=== PATIENT | male | born 1975 | race Hispanic/Latino ===

== ENCOUNTER 2021-07-31 09:06 | Emergency (ER) | payer SELFPAY ==
[2021-07-31] MEDS ORDERED: Boostrix 0.5 ML (Tdap) VIAL ONE (09:32)
[2021-07-31] MEDS ORDERED: Morphine 4 MG/ML VIAL ONE ×2 (09:32→10:41)
== END 2021-07-31 11:33 | disposition home or self-care (01) ==
LOC: ERS 09:06
DX: S52.572A Other intraarticular fracture of lower end of left radius, initial encounter for closed fracture (principal); S52.612A Displaced fracture of left ulna styloid process, initial encounter for closed fracture; W11.XXXA Fall on and from ladder, initial encounter
CPT/HCPCS: 29125; 90471; 90715; 96374; 96376; J2270